=== PATIENT | male | born 1955 | race Two or more races ===

== ENCOUNTER 2020-04-29 12:42 | Outpatient (CLI) | payer OTHER ==
[~2020-04-29] VITALS: Ht 182.9 cm; Wt 72.6 kg
[2020-04-29] MEDS ORDERED: LOSARTAN POTASS25 MG (16:51)
== END 2020-04-29 16:34 | disposition home or self-care (01) ==
LOC: OFIC 805 12:42
PROVIDERS: ATTEND Otolaryngology
DX: R49.0 Dysphonia (principal); M54.2 Cervicalgia; R09.81 Nasal congestion; R68.89 Other general symptoms and signs; K21.0 Gastro-esophageal reflux disease with esophagitis; R22.0 Localized swelling, mass and lump, head; H61.23 Impacted cerumen, bilateral

== ENCOUNTER 2020-04-29 14:22 | Outpatient (CLI) | payer OTHER ==
[2020-04-29] MEDS ORDERED: LOSARTAN POTASS25 MG (16:51)
== END 2020-04-29 14:44 | disposition home or self-care (01) ==
LOC: TOM 14:22
PROVIDERS: ATTEND Otolaryngology
DX: J32.0 Chronic maxillary sinusitis (principal)

== ENCOUNTER 2020-05-06 10:08 | Outpatient (CLI) | payer OTHER ==
[~2020-05-06 10:08] MED LIST: LOSARTAN POTASS25 MG
== END 2020-05-06 18:59 | disposition home or self-care (01) ==
LOC: OFIC 805 10:08
PROVIDERS: ATTEND Otolaryngology
DX: R09.81 Nasal congestion (principal); J39.2 Other diseases of pharynx; M54.2 Cervicalgia; R22.0 Localized swelling, mass and lump, head; K21.0 Gastro-esophageal reflux disease with esophagitis

== ENCOUNTER → 2020-06-03 | Outpatient (CLI) | payer OTHER | END | disposition home or self-care (01) | LOC: OFIC 805 12:30 | PROVIDERS: ATTEND Otolaryngology | DX: J34.3 Hypertrophy of nasal turbinates (principal); J33.8 Other polyp of sinus ==

== ENCOUNTER 2020-06-29 15:16 | Outpatient (CLI) | payer OTHER | END 2020-06-29 15:28 | disposition home or self-care (01) | LOC: LAB 15:16 | PROVIDERS: ATTEND Surgery | DX: Z03.818 Encounter for observation for suspected exposure to other biological agents ruled out (principal) ==

== ENCOUNTER 2020-07-05 07:00 | Day surgery (SDC) | payer OTHER | END 2020-07-05 13:00 | disposition home or self-care (01) | LOC: CIR.AMB 07:00 → SURH 07:00 → EDSTATUS 09:00 → SURH 09:00 → O/R 12:15 → CIR.AMB 13:00 | PROVIDERS: ATTEND Surgery | DX: J33.0 Polyp of nasal cavity (principal); Z20.828 Contact with and (suspected) exposure to other viral communicable diseases; J34.89 Other specified disorders of nose and nasal sinuses; J34.3 Hypertrophy of nasal turbinates ==

== ENCOUNTER → 2020-07-13 | Outpatient (CLI) | payer OTHER | END | disposition home or self-care (01) | LOC: OFIC 805 08:34 | PROVIDERS: ATTEND Otolaryngology | DX: J34.3 Hypertrophy of nasal turbinates (principal); J33.8 Other polyp of sinus; J39.2 Other diseases of pharynx ==

== ENCOUNTER → 2020-08-17 | Outpatient (CLI) | payer OTHER | END | disposition home or self-care (01) | LOC: OFIC 805 07-29 08:30 | PROVIDERS: ATTEND Otolaryngology | DX: J34.3 Hypertrophy of nasal turbinates (principal); J33.8 Other polyp of sinus; R09.81 Nasal congestion ==

== ENCOUNTER → 2020-08-30 | Outpatient (CLI) | payer OTHER | END | disposition home or self-care (01) | LOC: OFIC 805 08:30 | PROVIDERS: ATTEND Otolaryngology | DX: R09.81 Nasal congestion (principal); J33.8 Other polyp of sinus ==